=== PATIENT | male | born 1970 | race Caucasian/White ===

== ENCOUNTER 2016-05-13 15:18 | Emergency (ER) | payer MEDICAID, OTHER ==
[~2016-05-13 15:18] MED LIST: BENZ1TAB PO; CELE40TA PO; DESM1TAB16 PO; DIVA500T8 PO; MULT1TAB84 PO; RISP2TAB2 PO; RISP3TAB23 PO; SIMV10TA PO
[2016-05-13 15:42] VITALS: BP 118/30; PULSE 110; RESP 18; TEMP 98.7; O2SAT 94
[2016-05-13] MEDS ORDERED: RISP3 PO (16:07)
[2016-05-13] MEDS ORDERED: BENZ1TAB PO (16:07)
[2016-05-13] MEDS ORDERED: DIVA500T PO (16:07)
[2016-05-13] MEDS ORDERED: MULT1TAB84 PO (16:07)
[2016-05-13] MEDS ORDERED: DESM1TAB16 PO (16:07)
[2016-05-13] MEDS ORDERED: SIMV10TA PO (16:07)
[2016-05-13] MEDS ORDERED: CITA40TA4 PO (16:07)
[2016-05-13] MEDS ORDERED: RISP2TAB2 PO (16:07)
--- NOTE | 2016-05-13 17:01 | RADHPO ---
EXAM DATE/TIME: 05/13/2016 16:37 [facility] COMPARISON: No previous studies available for comparison. INDICATIONS : Cephalgia, right eye contusion. RADIATION DOSE: 41.99 CTDIvol (mGy) MEDICAL HISTORY : None SURGICAL HISTORY : None. ENCOUNTER: Initial ACUITY: 1 day PAIN SCALE: 5/10 LOCATION: cranial TECHNIQUE: Multiple contiguous axial images were obtained of the head. Using automated exposure control and adj ustment of the mA and/or kV according to patient size, radiation dose was kept as low as reasonably a chievable to obtain optimal diagnostic quality images. FINDINGS: CEREBRUM: The ventricles are normal for age. No evidence of midline shift, mass lesion, hemorrhage or acute in farction. No extra-axial fluid collections are seen. POSTERIOR FOSSA: The cerebellum and brainstem are intact. The 4th ventricle is midline. The cerebellopontine angle i s unremarkable. EXTRACRANIAL: The visualized portion of the orbits is intact. SKULL: The calvaria is intact. No evidence of skull fracture. CONCLUSION: 1. No acute intracranial abnormality identified. Manuel Camilo MD on May 13, 2016 at 16:57 Board Certified Radiologist. This report was verified electronically.
--- NOTE | 2016-05-13 17:06 | RADHPO ---
EXAM DATE/TIME: 05/13/2016 16:21 [facility] COMPARISON: No previous studies available for comparison. INDICATIONS : Left elbow pain . MEDICAL HISTORY : None. SURGICAL HISTORY : None. ENCOUNTER: Initial ACUITY: 1 day PAIN SCORE: 9/10 LOCATION: Left elbow FINDINGS: There is no evidence of fracture or dislocation. No joint effusion is present. There is mild soft tis kanchan swelling over the olecranon. CONCLUSION: No acute bony injury Manjinder Shukla MD on May 13, 2016 at 17:02 Board Certified Radiologist. This report was verified electronically.
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
[2016-06-27] MEDS ORDERED: SIMV10TA PO (15:02)
[2016-06-27] MEDS ORDERED: DESM1TAB16 PO (15:03)
[2016-07-30] MEDS ORDERED: DESM1TAB16 PO (13:50)
[2016-07-30] MEDS ORDERED: SIMV10TA PO (13:51)
== END 2016-05-13 19:15 | disposition home or self-care (01) ==
LOC: PHED 15:18
DX: S02.40DA Maxillary fracture, left side, initial encounter for closed fracture (principal); Y99.9 Unspecified external cause status; Y08.89XA Assault by other specified means, initial encounter; Y93.89 Activity, other specified; Y92.122 Bedroom in nursing home as the place of occurrence of the external cause; F79 Unspecified intellectual disabilities
CPT/HCPCS: 70450; 70486; 73070